=== PATIENT | female | born 1965 | race African-American/Black ===

== ENCOUNTER 2017-02-07 17:35 | Emergency (ER) | payer SELFPAY ==
[~2017-02-07] VITALS: Ht 172.7 cm; Wt 121.1 kg
[~2017-02-07 17:35] MED LIST: BENADRYL25 MG ORAL; DOXYCYCLINE MO100 MG ORAL; IBUPROFEN600 MG ORAL; KEFLEX500 MG ORAL; NKM; PERCOCET 5-3251 EACH PO; TRAMADOL HCL50 MG ORAL
--- NOTE | 2017-02-07 18:51 | Emergency Room Report ---
History of Present Illness General Chief Complaint: Lower Extremity Injury Source: Patient Present Illness HPI 51-year-old female presents to emergency Department complaining of pain, swelling and bruising to the left fourth toe times one day. Patient states that she accidentally stubbed her toe on a door jam. Patient states pain is exacerbated upon weight bearing she rates her pain as 9/10 in severity it is also exacerbated upon touch. She denies previous injury to the affected extremity. Denies hitting head or losing consciousness. Denies numbness tingling or loss of sensation or gross motor movements of the extremities, incontinence of bowel or bladder. Denies CP, Palpitations, LOC, AMS, dizziness, Changes in Vision, Sensation, paresthesias, or a sudden severe headache. Allergies: Coded Allergies: No Known Allergies (Unverified , 12/05/12) Patient History Past Medical History: see triage record Past Surgical History: none Pertinent Family History: none Last Menstrual Period: 6 MONTHS Now: No Immunizations: UTD Reviewed Nursing Documentation: PMH: Agreed, PSxH: Agreed Nursing Documentation-PMH Past Medical History: No History, Except For History Of Psychiatric Problem: Yes - MANIC DEPRESSION Review of Systems All Other Systems: negative except mentioned in HPI Physical Exam Vital Signs Date Time Temp Pulse Resp B/P Pulse Ox O2 Delivery O2 Flow Rate FiO2 02/07/17 17:44 97.5 100 16 169/90 100 Room Air Sp02 EP Interpretation: reviewed, normal General Appearance: no apparent distress, alert, GCS 15, non-toxic Head: normocephalic, atraumatic Eyes: bilateral eye PERRL, bilateral eye normal inspection ENT: hearing grossly normal, normal pharynx, no angioedema, normal voice Neck: full range of motion, supple/symm/no masses Respiratory: chest non-tender, lungs clear, normal breath sounds, speaking full sentences Cardiovascular #1: regular rate, rhythm, no edema Musculoskeletal: back normal, gait/station normal, normal range of motion - with pain, other - swelling, bruising and TTp to the base of the left 4th toe., tender - left 4th toe Neurologic: alert, oriented x3, responsive, motor strength/tone normal, sensory intact, speech normal Psychiatric: judgement/insight normal, memory normal, mood/affect normal, no suicidal/homicidal ideation Skin: no rash, warm/dry, well hydrated, hematoma - left 4th toe Medical Decision Making PA Attestation Dr. Merida is my supervising Physician whom patient management has been discussed with. Diagnostic Impression: Primary Impression: Toe fracture, left Qualified Codes: S92.912A - Unspecified fracture of left toe(s), initial encounter for closed fracture ER Course 51-year-old female presents to emergency Department complaining of pain, swelling and bruising to the left fourth toe times one day. Patient states that she accidentally stubbed her toe on a door jam. Patient states pain is exacerbated upon weight bearing she rates her pain as 9/10 in severity it is also exacerbated upon touch. She denies previous injury to the affected extremity. Denies hitting head or losing consciousness Ddx considered but are not limited to Fracture, dislocation, contusion, Sprain/ Strain/Spasm, Vital signs: are WNL, pt. is afebrile H&PE are most consistent with possible toe fracture. ORDERS: - X-ray Left foot 3 views -POSITIVE for fx of the base of the 4th toe, negative for Dislocation, or significant soft tissue injury, per preliminary read in ED by Dr. Merida ED INTERVENTIONS: - 5mg [place] PO - Rene tapping of the left 4th and 3rd Toe, and cast shoe applied by oscillograph technician. Pt. remains neurovascularly intact. Re-Evaluation: pt. states pain has subsided with ED interventions -Pt is provided with a pair of crutches DISCHARGE: At this time pt. is stable for d/c to home. Will provide printed patient care instructions, and any necessary prescriptions. Care plan and follow up instructions have been discussed with the patient prior to discharge. Last Vital Signs Date Time Temp Pulse Resp B/P Pulse Ox O2 Delivery O2 Flow Rate FiO2 02/07/17 17:44 97.5 100 16 169/90 100 Room Air Disposition: HOME, SELF-CARE Condition: Stable Scripts Hydrocodone Bit/Acetaminophen 5-325* (NORCO 5-325*) 1 Each Tablet 1 TAB ORAL Q6H Y for For Pain, #5 TAB 0 Refills Prov: Alana Nice P.A. 02/07/17 Ibuprofen* (MOTRIN*) 600 Mg Tablet 600 MG ORAL THREE TIMES A DAY, #30 TAB 0 Refills Prov: Alana Nice P.A. 02/07/17 Referrals: NON PHYSICIAN (PCP) Patient Instructions: Toe Fracture, [id number] Additional Instructions: Take medications as directed. Follow up with PCP or Structural Engineer in 3-5 days Return sooner to ED if new symptoms occur, or current symptoms become worse. Do not drink alcohol, drive, or operate heavy machinery while taking [place] as this may cause drowsiness. - Please note that this Emergency Department Report was dictated using [employer] assistant technology software, occasionally this can lead to erroneous entry secondary to interpretation by the dictation equipment. Alana Nice Feb 07, 2017 18:51
[2017-02-07] MEDS ORDERED: NORCO 5-325 TA1 EACH ORAL (18:59)
[2017-02-07] MEDS ORDERED: IBUPROFEN600 MG ORAL (18:59)
[2017-02-07] MEDS ORDERED: Norco 5mg/325mg tab ORAL ONE (19:00)
[2017-02-07 19:11] VITALS: BP 149/85
--- NOTE | 2017-02-10 08:33 | Diagnostic Imaging Report ---
Indication: Left foot pain Technique: Left foot 3 views Comparison: None Findings: There is a fracture involving the base of fourth proximal phalanx. Bone mineralization is normal. There is a posterior calcaneal enthesophyte. Impression: Acute fracture involving the base of the fourth proximal phalanx.
== END 2017-02-07 19:11 | disposition home or self-care (01) ==
LOC: EMR 18:19
DX: S92.912A Unspecified fracture of left toe(s), initial encounter for closed fracture (principal); X58.XXXA Exposure to other specified factors, initial encounter; Y93.9 Activity, unspecified; Y92.9 Unspecified place or not applicable; Z86.59 Personal history of other mental and behavioral disorders
CPT/HCPCS: 99284

== ENCOUNTER 2018-05-20 02:04 | Emergency (ER) | payer SELFPAY ==
[~2018-05-20] VITALS: Ht 172.7 cm; Wt 103.4 kg
[~2018-05-20 02:04] MED LIST changes: +NORCO 5-325 TA1 EACH ORAL
[2018-05-20] MEDS ORDERED: Sodium Chloride 500ML 500 ML IV ONE (03:17)
[2018-05-20 03:36] LABS: BASOPHILS % (AUTO) 1.2 % (0.0-2.0); HEMATOCRIT 45.7 % (37.0-47.0); HEMOGLOBIN 14.1 G/DL (12.0-16.0); LYMPHOCYTES % (AUTO) 26.7 % (20.0-45.0); MEAN CORPUSCULAR VOLUME 83 FL (80-99); MONOCYTES % (AUTO) 7.6 % (1.0-10.0); NEUTROPHILS % (AUTO) 61.5 % (45.0-75.0); PLATELET COUNT 424 K/UL (150-450); RED BLOOD COUNT 5.48 M/UL (4.20-5.40); RED CELL DISTRIBUTION WIDTH 13.1 % (11.6-14.8); WHITE BLOOD COUNT 9.6 K/UL (4.8-10.8)
[2018-05-20 03:41] LABS: ANION GAP 4 mmol/L (5-15); BLOOD UREA NITROGEN 11 mg/dL (7-18); CALCIUM 8.7 MG/DL (8.5-10.1); CARBON DIOXIDE 27 MMOL/L (21-32); CHLORIDE 106 MMOL/L (98-107); CREATININE 0.9 MG/DL (0.55-1.30); POTASSIUM 4.2 MMOL/L (3.5-5.1); SODIUM 137 MMOL/L (136-145)
[2018-05-20 03:43] LABS: INR 0.9 (0.9-1.1)
[2018-05-20 03:46] LABS: ALANINE AMINOTRANSFERASE 24 U/L (12-78); ALBUMIN 3.2 G/DL (3.4-5.0); ALBUMIN/GLOBULIN RATIO 0.7 (1.0-2.7); ALKALINE PHOSPHATASE 138 U/L (46-116); ASPARTATE AMINO TRANSFERASE 15 U/L (15-37); BILIRUBIN,TOTAL 0.2 MG/DL (0.2-1.0)
--- NOTE | 2018-05-20 05:32 | Emergency Room Report ---
History of Present Illness General Chief Complaint: Female Urogenital Problems Source: Patient Present Illness HPI Patient is a 52-year-old female who presented after increased vaginal bleeding. Patient gradual onset of symptoms. 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 Patient had reported not having menses for several months. She reports having increased vaginal bleeding. She denies any dizziness or lightheadedness. Patient had not been vomiting. Patient states she not had a period for over a year. The her [employer] is Dr. Martin Mosley. Allergies: Coded Allergies: No Known Allergies (Unverified , 12/05/12) Patient History Past Medical History: see triage record Now: No : 8 Para: 2 Reviewed Nursing Documentation: PMH: Agreed; PSxH: Agreed Nursing Documentation-PMH Past Medical History: No Stated History Hx Cardiac Problems: No Hx Hypertension: No Review of Systems All Other Systems: negative except mentioned in HPI Physical Exam Vital Signs Date Time Temp Pulse Resp B/P (MAP) Pulse Ox O2 Delivery O2 Flow Rate FiO2 05/20/18 02:17 89 21 161/98 98 Room Air Sp02 EP Interpretation: reviewed, normal General Appearance: normal inspection, well appearing, no apparent distress, alert, obese Head: atraumatic ENT: normal ENT inspection, hearing grossly normal, normal voice Neck: normal inspection, full range of motion, supple, no bony tend Respiratory: normal inspection, lungs clear, normal breath sounds, no respiratory distress, no retraction, no wheezing Cardiovascular #1: regular rate, rhythm, no edema Gastrointestinal: normal inspection, normal bowel sounds, non tender, soft, no guarding, no hernia Genitourinary: no CVA tenderness, os closed, other - scant bleeding Musculoskeletal: normal inspection, back normal, normal range of motion Neurologic: normal inspection, alert, responsive, speech normal Psychiatric: normal inspection, judgement/insight normal, mood/affect normal Skin: normal inspection, normal color, no rash Medical Decision Making Diagnostic Impression: Primary Impression: Menorrhagia ER Course Patient presented for vaginal bleeding. The differential diagnosis included was not limited to coagulopathy, anemia, threatened , ectopic among others. Patient has a benign exam and does not appear to require any imaging at this time. Laboratory testing showed adequate hemoglobin. The patient appears to be stable for outpatient management. Urine test was negative.The patient is advised to follow up with primary care doctor in 1- 2 days. Patient is advised to return if any worsening condition or if any changes in status that are concerning. This report is dictated with [employer] engine installer software which may occasionally lead to discrepancies related to use of this software. Labs Test 05/20/18 03:15 White Blood Count 9.6 K/UL (4.8-10.8) Red Blood Count 5.48 M/UL (4.20-5.40) Hemoglobin 14.1 G/DL (12.0-16.0) Hematocrit 45.7 % (37.0-47.0) Mean Corpuscular Volume 83 FL (80-99) Mean Corpuscular Hemoglobin 25.7 PG (27.0-31.0) Mean Corpuscular Hemoglobin Concent 30.8 G/DL (32.0-36.0) Red Cell Distribution Width 13.1 % (11.6-14.8) Platelet Count 424 K/UL (150-450) Mean Platelet Volume 6.3 FL (6.5-10.1) Neutrophils (%) (Auto) 61.5 % (45.0-75.0) Lymphocytes (%) (Auto) 26.7 % (20.0-45.0) Monocytes (%) (Auto) 7.6 % (1.0-10.0) Eosinophils (%) (Auto) 3.0 % (0.0-3.0) Basophils (%) (Auto) 1.2 % (0.0-2.0) Prothrombin Time 9.4 SEC (9.30-11.50) Prothromb Time International Ratio 0.9 (0.9-1.1) Activated Partial Thromboplast Time 21 SEC (23-33) Sodium Level 137 MMOL/L (136-145) Potassium Level 4.2 MMOL/L (3.5-5.1) Chloride Level 106 MMOL/L (98-107) Carbon Dioxide Level 27 MMOL/L (21-32) Anion Gap 4 mmol/L (5-15) Blood Urea Nitrogen 11 mg/dL (7-18) Creatinine 0.9 MG/DL (0.55-1.30) Estimat Glomerular Filtration Rate > 60 mL/min (>60) Glucose Level 85 MG/DL (74-106) Calcium Level 8.7 MG/DL (8.5-10.1) Total Bilirubin 0.2 MG/DL (0.2-1.0) Aspartate Amino Transf (AST/SGOT) 15 U/L (15-37) Alanine Aminotransferase (ALT/SGPT) 24 U/L (12-78) Alkaline Phosphatase 138 U/L (46-116) Total Protein 7.8 G/DL (6.4-8.2) Albumin 3.2 G/DL (3.4-5.0) Globulin 4.6 g/dL Albumin/Globulin Ratio 0.7 (1.0-2.7) Lipase 121 U/L (73-393) Last Vital Signs Date Time Temp Pulse Resp B/P (MAP) Pulse Ox O2 Delivery O2 Flow Rate FiO2 05/20/18 02:17 89 21 161/98 98 Room Air Status: improved Disposition: HOME, SELF-CARE Condition: Stable Patient Instructions: Menorrhagia, [id number] Pedro Merida MD May 20, 2018 05:31
[2018-05-20 05:41] LABS: BILIRUBIN, URINE NEGATIVE (NEGATIVE); COLOR,URINE PALE YELLOW; GLUCOSE, URINE (UA) NEGATIVE (NEGATIVE); KETONES,URINE NEGATIVE (NEGATIVE); LEUKOCYTE ESTERASE ,URINE NEGATIVE (NEGATIVE); NITRITE,URINE NEGATIVE (NEGATIVE); PH,URINE 7 (4.5-8.0); PROTEIN,URINE NEGATIVE (NEGATIVE); UROBILINOGEN,URINE NORMAL MG/DL (0.0-1.0)
[2018-05-20 05:42] VITALS: BP 152/86
[2018-05-20 05:45] VITALS: BP 152/86
[2018-05-20 05:53] LABS: APPEARANCE,URINE SLIGHTLY CLOUDY
== END 2018-05-20 05:45 | disposition home or self-care (01) ==
LOC: EMR 02:33
DX: N92.0 Excessive and frequent menstruation with regular cycle (principal)
CPT/HCPCS: 80053; 81003; 81025; 83690; 85025; 85610; 85730; 87086; 87181; 99283

== ENCOUNTER 2018-12-20 02:05 | Emergency (ER) | payer MEDICAID ==
[~2018-12-20] VITALS: Ht 172.7 cm; Wt 99.8 kg
--- NOTE | 2018-12-20 02:14 | NUR ---
ED Nurse Note: Pt arrived ED from home. C/o fell on ground at home today and pain 7/10 on pt's right Ankle and some swollen . Pt is A/o x4. Vital signs stable at this time. Waiting for orders.
[2018-12-20] MEDS ORDERED: Norco 5mg/325mg tab ORAL ONE (02:30)
[2018-12-20] MEDS ORDERED: IBUPROFEN600 MG ORAL (03:02)
[2018-12-20] MEDS ORDERED: HYDROCODON-ACE1 EA15 ORAL (03:02)
--- NOTE | 2018-12-20 03:03 | Emergency Room Report ---
History of Present Illness General Chief Complaint: Lower Extremity Injury Source: Patient Present Illness HPI Is a 53-year-old female who had previous ankle fracture in the past. She presents with chief complaint of ankle pain. Onset was just an hour prior to arrival. She slipped and twisted her ankle on wet floor sent home. She has some swelling to the lateral aspect of the ankle. Worse with bearing weight. No fever chills but no nausea vomiting. No other injury. Pain is 9 out of 10. Allergies: Coded Allergies: No Known Allergies (Unverified , 12/05/12) Patient History Past Medical History: see triage record, old chart reviewed Past Surgical History: other Pertinent Family History: none Social History: Denies: smoking Last Menstrual Period: RAGINI Now: No Immunizations: other Reviewed Nursing Documentation: PMH: Agreed; PSxH: Agreed Nursing Documentation-PMH Past Medical History: No Stated History Hx Cardiac Problems: No Hx Hypertension: No Review of Systems Eye: Denies: eye pain, blurred vision ENT: Denies: ear pain, nose congestion, throat swelling Respiratory: Denies: cough, shortness of breath Cardiovascular: Denies: chest pain, palpitations Gastrointestinal: Denies: abdominal pain, diarrhea, nausea, vomiting Musculoskeletal: Reports: joint pain, joint swelling; Denies: back pain Skin: Denies: rash Neurological: Denies: headache, numbness Endocrine: Denies: increased thirst, increased urine Hematologic/Lymphatic: Denies: easy bruising All Other Systems: negative except mentioned in HPI Physical Exam Vital Signs Date Time Temp Pulse Resp B/P (MAP) Pulse Ox O2 Delivery O2 Flow Rate FiO2 12/20/18 02:16 97.3 88 16 145/89 96 Room Air vitals with high blood pressure Sp02 EP Interpretation: reviewed, normal General Appearance: well appearing, no apparent distress, alert Head: normocephalic, atraumatic Eyes: bilateral eye PERRL, bilateral eye EOMI ENT: hearing grossly normal, normal pharynx Neck: full range of motion, supple, no meningismus Respiratory: chest non-tender, lungs clear, normal breath sounds Cardiovascular #1: regular rate, rhythm, no murmur Gastrointestinal: normal bowel sounds, non tender, no mass, no organomegaly, no bruit, non-distended Musculoskeletal: back normal, normal range of motion, other - Right ankle: She has tenderness and swelling to the anterior talar fibular ligament. No pain to the base of the fifth metatarsal bone. Dorsalis pedis pulses normal. Sensation normal. Ankle is stable. Psychiatric: mood/affect normal Skin: warm/dry Procedures Splinting Splinting : Consent: Verbal Location: Right ankle Pre-Made Type: aircast Pre-Proc Neuro Vasc Exam: normal Post-Proc Neuro Vasc Exam: normal Patient Tolerated: Well Complications: None Progress patient refused crutches Medical Decision Making Diagnostic Impression: Primary Impression: Right ankle sprain Qualified Codes: S93.491A - Sprain of other ligament of right ankle, initial encounter ER Course She with soft tissue injury. No fracture dislocation. We'll discharge home. Last Vital Signs Date Time Temp Pulse Resp B/P (MAP) Pulse Ox O2 Delivery O2 Flow Rate FiO2 12/20/18 02:16 97.3 88 16 145/89 96 Room Air Status: improved Disposition: HOME, SELF-CARE Condition: Stable Scripts Ibuprofen* (MOTRIN*) 600 Mg Tablet 600 MG ORAL THREE TIMES A DAY, #30 TAB 0 Refills Prov: Phi Lindsay MD 12/20/18 Hydrocodone/Acetaminophen 5-325* (HYDROCODONE/ACETAMINOPHEN 5-325*) 1 Each Tablet 1 TAB ORAL Q6H PRN for For Pain, #15 TAB 0 Refills Prov: Phi Lindsay MD 12/20/18 Referrals: [facility],REFERR[facility] (PCP) Patient Instructions: Ankle Sprain Additional Instructions: Elevate leg. Ice pack to the area. Follow-up with your doctor in 7 days. Return if worse. Phi Lindsay MD Dec 20, 2018 03:03
--- NOTE | 2018-12-20 03:05 | Emergency Room Report ---
History of Present Illness General Chief Complaint: Lower Extremity Injury Source: Patient Present Illness Allergies: Coded Allergies: No Known Allergies (Unverified , 12/05/12) Patient History Last Menstrual Period: RAGINI Now: No Nursing Documentation-[facility] Past Medical History: No Stated History Hx Cardiac Problems: No Hx Hypertension: No Physical Exam Vital Signs Date Time Temp Pulse Resp B/P (MAP) Pulse Ox O2 Delivery O2 Flow Rate FiO2 12/20/18 02:16 97.3 88 16 145/89 96 Room Air Medical Decision Making Diagnostic Impression: Primary Impression: Right ankle sprain Qualified Codes: S93.491A - Sprain of other ligament of right ankle, initial encounter Other X-Ray Diagnostic Results Other X-Ray Diagnostic Results : X-Ray ordered: Right ankle x-rays # of Views/Limited Vs Complete: 3 View Indication: Pain EP Interpretation: Yes Interpretation: no dislocation, no soft tissue swelling, no fractures, other - old radial styloid frx. Impression: No acute disease Electronically Signed by: Phi Lindsay MD Last Vital Signs Date Time Temp Pulse Resp B/P (MAP) Pulse Ox O2 Delivery O2 Flow Rate FiO2 12/20/18 02:16 97.3 88 16 145/89 96 Room Air Status: improved Disposition: HOME, SELF-CARE Condition: Stable Scripts Ibuprofen* (MOTRIN*) 600 Mg Tablet 600 MG ORAL THREE TIMES A DAY, #30 TAB 0 Refills Prov: Phi Lindsay MD 12/20/18 Hydrocodone/Acetaminophen 5-325* (HYDROCODONE/ACETAMINOPHEN 5-325*) 1 Each Tablet 1 TAB ORAL Q6H PRN for For Pain, #15 TAB 0 Refills Prov: Phi Lindsay MD 12/20/18 Referrals: [facility]ERR[facility] (PCP) Patient Instructions: Ankle Sprain Additional Instructions: Elevate leg. Ice pack to the area. Follow-up with your doctor in 7 days. Return if worse. Phi Lindsay MD Dec 20, 2018 03:05
[2018-12-20 03:12] VITALS: BP 142/83
--- NOTE | 2018-12-20 03:12 | NUR ---
ED Nurse Note: Pt has seen by Dr. Lindsay. All orders carried out. X-ray done, Pain Meds given, Immoble splin applied and provided Chruches. Pt is ready for discharge. D/c instruction and prescription given to Pt and verbalized understanding. ID band removed. Pt d/c from ED with steady gait. Acoompanied by her family.
== END 2018-12-20 03:12 | disposition home or self-care (01) ==
LOC: EMR 02:35
DX: S93.401A Sprain of unspecified ligament of right ankle, initial encounter (principal); W18.49XA Other slipping, tripping and stumbling without falling, initial encounter; Y92.89 Other specified places as the place of occurrence of the external cause
CPT/HCPCS: 29515; 99283